=== PATIENT | female | born 1960 | race Caucasian/White ===

== ENCOUNTER 2021-05-12 14:46 | Observation (INO) ==
[2021-05-12 17:42] LABS: Basophils % 0.3 % (0.0-0.8); Eosinophils # 0.1 10*3/uL (0.0-0.87); Eosinophils % 0.6 % (0.00-10.9); Hemoglobin 13.6 GM/DL (12.0-16.0); Immature Granulocytes % 0.2 %; Immature Granulocytes Absolute 0.02 #; Lymphocytes # 1.8 10*3/uL (1.4-4.0); Lymphocytes % 21.2 % (21.3-54.2); Mean Platelet Volume 11.6 FL (9.6-12.0); Monocytes % 8.4 % (1.7-12.7); Neutrophils % 69.3 % (38.7-73.9); Platelet Count 188 T/CUMM (130-400); Red Blood Count 4.08 MC/CUMM (3.8-5.5); Red Cell Distribution Width 13.2 % (9.3-17.3); White Blood Count 8.6 T/CUMM (4-12)
[2021-05-12 17:50] LABS: Bilirubin,Total 0.8 MG/DL (0.20-1.00); Osmolality,Calculated 277.7 MOS/KG (273-304); Potassium 3.4 MMOL/L (3.5-5.1); Total Protein 7.4 G/DL (6.4-8.2)
[2021-05-12] MEDS ORDERED: LACTATED RINGERS 1,000 ML IV ONE (19:10)
[2021-05-12] MEDS ORDERED: ONDANSETRON 4 MG/2 ML VIAL IV ONE (19:10)
[2021-05-12] MEDS ORDERED: HYDROmorphone 2 MG/1 ML VIAL IM STA (19:10)
[2021-05-12] MEDS ORDERED: HYDROmorphone 2 MG/1 ML VIAL IV STA (19:53)
[2021-05-12 20:27] LABS: Bilirubin,Urine Negative (Negative); Blood, Urine Large mg/dL (Negative); Glucose,Urine (UA) Negative (Negative); Hyaline Casts,Urine 7 /LPF (0-3); Ketones,Urine Negative (Negative); Mucus,Urine Occasional /LPF (Occasional); Nitrite,Urine Negative (Negative); Protein,Urine 30 MG/DL; RBC,Urine 270 /HPF (0-4); Squamous Epithelial Cell,Urine Occasional /HPF (0-10); Urine Appearance Slightly Hazy (Clear); Urine Color Yellow (Yellow); Urine Specific Gravity 1.016 (1.001-1.035); Urine Urobilinogen < 2.0 EU/DL (0.2-1.0)
[2021-05-12] MEDS ORDERED: cefTRIAXone 1,000 MG in SODIUM CHLORIDE 0.9% 100 ML IV STA (21:09)
[2021-05-12] MEDS ORDERED: ACETAMINOPHEN 325 MG TABLET PO PRN (21:13)
[2021-05-12] MEDS ORDERED: ONDANSETRON 4 MG/2 ML VIAL IV PRN (21:13)
[2021-05-12] MEDS ORDERED: HYDROmorphone 2 MG/1 ML VIAL IV PRN (21:13)
[2021-05-12] MEDS: LACTATED RINGERS 1,000 ML IV SCH (23:24)
[2021-05-13] MEDS: LACTATED RINGERS 1,000 ML IV SCH (05:56)
[2021-05-13] MEDS ORDERED: cefTRIAXone 1,000 MG in SODIUM CHLORIDE 0.9% 100 ML IV ONE (06:26)
[2021-05-13] MEDS ORDERED: SCOPOLAMINE 1.5 MG PATCH TRANSDERM ONE (07:38)
[2021-05-13] MEDS ORDERED: PANTOPRAZOLE 40 MG TABLET PO SCH (09:00)
[2021-05-13] MEDS ORDERED: ONDANSETRON 4 MG/2 ML VIAL IV PRN (09:41)
[2021-05-13] MEDS ORDERED: HYDROmorphone 2 MG/1 ML VIAL IV PRN (09:41)
[2021-05-13 12:14] VITALS: BP 100/67
== END 2021-05-13 13:22 | disposition home or self-care (01) ==
LOC: N.EDINP 14:46 → N.ED 14:46 → N.EDINP 05-13 03:21 → N.TELES 05-13 03:22
PROVIDERS: ADMIT Surgery; ATTEND Surgery